=== PATIENT | female | born 1945 | race Caucasian/White ===

== ENCOUNTER 2019-03-23 19:56 | Observation (INO) | payer MEDICARE, OTHER ==
[2019-03-23 20:30] LABS: ADD MAN DIFF? NO
[2019-03-23 20:33] LABS: WHITE BLOOD COUNT 5.6 10^3/ul (4.8-10.8)
[2019-03-23 20:33] LABS: BASOPHIL # 0.1 10^3/ul (0.0-0.1); BASOPHILS % 0.9 % (0.0-2.0); EOSINOPHILS # 0.3 10^3/ul (0.0-0.5); EOSINOPHILS % 5.9 % (0.0-7.0); HEMATOCRIT 39.5 % (37.0-47.0); HEMOGLOBIN 13.2 g/dl (12.0-16.0); LYMPHOCYTES # 1.5 10^3/ul (0.8-2.9); LYMPHOCYTES % 27.3 % (15.0-51.0); MEAN CORPUSCULAR HEMOGLOBIN 30.3 pg (29.0-33.0); MEAN CORPUSCULAR HGB CONC 33.4 g/dl (32.0-37.0); MEAN CORPUSCULAR VOLUME 90.6 fl (82.0-101.0); MEAN PLATELET VOLUME 10.9 fl (7.4-10.4); MONOCYTE # 0.4 10^3/ul (0.3-0.9); MONOCYTES % 7.1 % (0.0-11.0); NEUTROPHIL # 3.3 10^3/ul (1.6-7.5); NEUTROPHILS % 58.4 % (39.0-77.0); PLATELET COUNT 234 10^3/UL (140-415); RED BLOOD COUNT 4.36 10^6/ul (4.20-5.40); RED CELL DISTRIBUTION WIDTH 13.1 % (11.5-14.5)
[2019-03-23 20:49] LABS: ANION GAP 9 (5-13); BLOOD UREA NITROGEN 17 mg/dl (7-20); CALCIUM 9.9 mg/dl (8.4-10.2); CARBON DIOXIDE 26 mmol/L (21-31); CHLORIDE 101 mmol/L (97-110); CREATININE 0.54 mg/dl (0.44-1.00); GLUCOSE 115 mg/dl (70-220); POTASSIUM 3.9 mmol/L (3.5-5.1); SODIUM 136 mmol/L (135-144)
[2019-03-23 21:01] LABS: TROPONIN-I < 0.012 ng/ml (0.000-0.120)
[2019-03-23] MEDS ORDERED: ONDANSETRON 4 MG INJ IV ×2 (23:00→23:30)
[2019-03-23] MEDS ORDERED: ACETAMINOPHEN 325 MG TAB PO (23:00)
[2019-03-23] MEDS ORDERED: DOCUSATE SODIUM 100 MG CAP PO (23:30)
[2019-03-23] MEDS ORDERED: NACL 0.9% 3 ML SYG IV (23:30)
[2019-03-23] MEDS ORDERED: NITROGLYCERIN (SL) 0.4 MG TAB SL (23:30)
[2019-03-23] MEDS ORDERED: BISACODYL (EC) 5 MG TAB PO (23:30)
[2019-03-23] MEDS ORDERED: morphine 2 MG INJ IV (23:30)
[2019-03-24] MEDS ORDERED: LORAZEPAM 0.5 MG TAB PO (01:30)
[2019-03-24] MEDS: ACETAMINOPHEN 325 MG TAB PO ×2 (01:53→14:43)
[2019-03-24 05:42] LABS: ADD MAN DIFF? NO
[2019-03-24 05:53] LABS: WHITE BLOOD COUNT 5.3 10^3/ul (4.8-10.8)
[2019-03-24 05:53] LABS: BASOPHIL # 0.1 10^3/ul (0.0-0.1); BASOPHILS % 1.1 % (0.0-2.0); EOSINOPHILS # 0.3 10^3/ul (0.0-0.5); EOSINOPHILS % 5.7 % (0.0-7.0); HEMATOCRIT 39.1 % (37.0-47.0); HEMOGLOBIN 12.7 g/dl (12.0-16.0); LYMPHOCYTES # 1.4 10^3/ul (0.8-2.9); LYMPHOCYTES % 26.5 % (15.0-51.0); MEAN CORPUSCULAR HGB CONC 32.5 g/dl (32.0-37.0); MEAN CORPUSCULAR VOLUME 92.2 fl (82.0-101.0); MEAN PLATELET VOLUME 11.5 fl (7.4-10.4); MONOCYTE # 0.6 10^3/ul (0.3-0.9); MONOCYTES % 11.2 % (0.0-11.0); NEUTROPHIL # 2.9 10^3/ul (1.6-7.5); NEUTROPHILS % 55.5 % (39.0-77.0); PLATELET COUNT 237 10^3/UL (140-415); RED BLOOD COUNT 4.24 10^6/ul (4.20-5.40); RED CELL DISTRIBUTION WIDTH 13.2 % (11.5-14.5)
[2019-03-24 06:22] LABS: ALANINE AMINOTRANSFERASE 27 IU/L (13-69); ALBUMIN 3.5 g/dl (3.3-4.9); ALBUMIN/GLOBULIN RATIO 1.25; ALKALINE PHOSPHATASE 69 IU/L (42-121); ANION GAP 4 (5-13); ASPARTATE AMINO TRANSFERASE 23 IU/L (15-46); BILIRUBIN,INDIRECT 0.4 mg/dl (0-1.1); BILIRUBIN,TOTAL 0.4 mg/dl (0.2-1.3); BLOOD UREA NITROGEN 18 mg/dl (7-20); CALCIUM 9.7 mg/dl (8.4-10.2); CARBON DIOXIDE 32 mmol/L (21-31); CHLORIDE 102 mmol/L (97-110); CHOL/HDL RATIO 4.4 RATIO; CHOLESTEROL 226 mg/dl (100-200); CREATININE 0.68 mg/dl (0.44-1.00); GLUCOSE 90 mg/dl (70-220); HDL CHOLESTEROL 51 mg/dl (33-92); LDL CHOLESTEROL,CALCULATED 151 mg/dl; MAGNESIUM 2.1 mg/dl (1.7-2.5); POTASSIUM 4.2 mmol/L (3.5-5.1); SODIUM 138 mmol/L (135-144); TOTAL PROTEIN 6.3 g/dl (6.1-8.1); TRIGLYCERIDES 120 mg/dl (0-149)
[2019-03-24 06:34] LABS: FREE T3 3.54 pg/ml (2.77-5.27)
[2019-03-24] MEDS: PANTOPRAZOLE (EC) 40 MG TAB PO (06:48)
[2019-03-24 07:05] LABS: FREE T4 (FREE THYROXINE) 1.27 ng/dl (0.78-2.44)
[2019-03-24 07:23] LABS: HEMOGLOBIN A1C 5.4 % (0-5.9)
[2019-03-24] MEDS ORDERED: METHIMAZOLE 5 MG TAB PO (09:00)
[2019-03-24] MEDS ORDERED: NON-FORMULARY/PATIENT OWN MED (Calcium Citrate/Vitamin D (Citracal-Vitamin D 200 MG-250) 1 PO (09:00)
[2019-03-24] MEDS: LOSARTAN 50 MG TAB PO (09:02)
[2019-03-24] MEDS: GABAPENTIN 300 MG CAP PO ×2 (09:02→14:43)
[2019-03-24] MEDS: ASPIRIN (EC) 81 MG TAB PO (09:02)
[2019-03-24] MEDS: CALCIUM/VITAMIN D (250/125) TAB PO (09:02)
[2019-03-24] MEDS: ASCORBIC ACID 500 MG TAB PO (09:03)
[2019-03-24] MEDS: HYDROCHLOROTHIAZIDE 12.5 MG CAP PO (09:03)
[2019-03-24] MEDS: LORATADINE 10 MG TAB PO (09:03)
[2019-03-24 16:31] LABS: TROPONIN-I < 0.012 ng/ml (0.000-0.120)
[2019-03-24] MEDS ORDERED: ATORVASTATIN 10 MG TAB PO (21:00)
[2019-03-24] MEDS ORDERED: NON-FORMULARY/PATIENT OWN MED (Omeprazole* 20 MG) PO (21:00)
[2019-03-24] MEDS ORDERED: traZODone 50 MG TAB PO (21:00)
[2019-03-24] MEDS ORDERED: NON-FORMULARY/PATIENT OWN MED (Simvastatin 20 MG) PO (21:00)
== END 2019-03-24 18:55 | disposition home or self-care (01) ==
LOC: 6WM 22:34 → E/R 19:56
DX: R07.89 Other chest pain (principal); I10 Essential (primary) hypertension; K21.9 Gastro-esophageal reflux disease without esophagitis; E05.90 Thyrotoxicosis, unspecified without thyrotoxic crisis or storm; F41.9 Anxiety disorder, unspecified; F43.21 Adjustment disorder with depressed mood; E78.5 Hyperlipidemia, unspecified; Z79.82 Long term (current) use of aspirin
CPT/HCPCS: 36415; 71045; 71250; 80048; 80053; 80061; 83036; 83735; 84439; 84443; 84481; 84484; 85025; 93005; 93306; 99285-25; G0378